=== PATIENT | female | born 2000 | race American Indian/Alaskan Native ===

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

== ENCOUNTER 2022-03-18 14:46 | Outpatient (CLI) | payer OTHER | END 2022-03-18 14:47 | disposition home or self-care (01) | LOC: BICULT 14:46 | PROVIDERS: ATTEND Family Medicine | DX: N63.22 Unspecified lump in the left breast, upper inner quadrant (principal) ==